=== PATIENT | male | born 1970 | race African-American/Black ===

== ENCOUNTER 2017-04-05 13:52 | Inpatient (IN) | payer BC ==
[~2017-04-05] VITALS: Ht 188 cm; Wt 113.4 kg
[~2017-04-05 13:52] MED LIST: ASPIRIN325 MG PO; GLUCOPHAGE1000 MG PO; HYDROCHLOROTHIA25 MG PO; LOPRESSOR25 MG PO; NORVASC10 MG PO; PRAVASTATIN SOD10 MG PO; PRINIVIL10 MG PO; VIAGRA100 MG PO
[2017-04-06] MEDS ORDERED: CLARITIN 10 MG10 MG PO (06:22)
[2017-04-06] MEDS ORDERED: FUROSEMIDE40 MG PO (06:22)
[2017-04-06] MEDS ORDERED: CATAPRES0.1 MG PO (06:25)
[2017-04-06] MEDS ORDERED: TENORMIN50 MG PO (06:26)
[2017-04-06] MEDS ORDERED: POTASSIUM CHLO20 MEQ PO (06:27)
[2017-04-06] MEDS ORDERED: LANTUS INSULIN10 ML SC (06:28)
[2017-04-06] MEDS ORDERED: GLUCOTROL ER2.5 MG PO (06:28)
[2017-04-06] MEDS ORDERED: VITAMIN C1000 MG PO (06:30)
[2017-04-06 11:01] VITALS: Ht 188 cm; Wt 113.4 kg
[2017-04-07 13:34] VITALS: BP 157/93
== END 2017-04-07 16:24 | disposition home or self-care (01) | DRG 389 ==
LOC: D.ER 13:52 → D.MS 19:42
PROVIDERS: ADMIT Surgery
PROC: 0D9670Z Drainage of Stomach with Drainage Device, Via Natural or Artificial Opening (ICD-10-PCS; principal; 2017-04-05)
DX: K56.60 Unspecified intestinal obstruction (principal); N17.9 Acute kidney failure, unspecified; G81.91 Hemiplegia, unspecified affecting right dominant side; E11.65 Type 2 diabetes mellitus with hyperglycemia; Z79.4 Long term (current) use of insulin; I10 Essential (primary) hypertension; E78.5 Hyperlipidemia, unspecified

== ENCOUNTER → 2017-06-07 11:05 | Outpatient (CLI) | payer MEDICAID ==
[2017-04-06 11:01] VITALS: BMI 32.1
[~2017-06-07 11:05] MED LIST changes: +CATAPRES0.1 MG PO; +CLARITIN 10 MG10 MG PO; +FUROSEMIDE40 MG PO; +GLUCOTROL ER2.5 MG PO; +LANTUS INSULIN10 ML SC; +POTASSIUM CHLO20 MEQ PO; +TENORMIN50 MG PO; +VITAMIN C1000 MG PO
== END | disposition home or self-care (01) ==
LOC: D.CT 11:00
DX: R91.1 Solitary pulmonary nodule (principal)

== ENCOUNTER 2019-04-19 21:05 | Inpatient (IN) | payer MEDICAID ==
[~2019-04-19] VITALS: Ht 188 cm; Wt 117.9 kg
[2019-04-19 22:19] LABS: BASOPHILS 0.1 % (0-2); EOSINOPHILS 0.6 % (0-7); HEMATOCRIT 39.9 % (42.0-54.0); HEMOGLOBIN 14.2 g/dL (13.5-17.5); IMMATURE GRANULOCYTES 0.1 % (0-5); LYMPHOCYTES 16.1 % (15-50); MCH 27.2 pg (26.0-34.0); MCHC 35.6 g/dL (31.0-37.0); MCV 76.4 fL (80.0-100.0); MONOCYTES 3.7 % (2-11); NEUTROPHILS 79.4 % (40-80); PLATELET COUNT 163 10x3/uL (130-400); RBC 5.22 10x6/uL (4.20-6.10); RDW 14.4 % (11.5-14.5); WBC 7.9 10x3/uL (4.8-10.8)
[2019-04-19 22:35] LABS: ALBUMIN 3.6 g/dL (3.4-5.0); ALKALINE PHOSPHATASE 75 U/L (46-116); ALT (SGPT) 23 U/L (10-68); AMYLASE - SERUM 36 U/L (25-115); BILIRUBIN - TOTAL 0.64 mg/dL (0.2-1.3); CALC OSMOLALITY 281 mosm/kg (275-300); CALCIUM 9.5 mg/dL (8.5-10.1); CARBON DIOXIDE 27.3 mmol/L (21.0-32.0); CHLORIDE - SERUM 98 mmol/L (98-107); CREATININE - SERUM 1.5 mg/dL (0.6-1.3); GLUCOSE 262 mg/dL (74-106); LIPASE 105 U/L (73-393); POTASSIUM - SERUM 4.1 mmol/L (3.5-5.1); PROTEIN - SERUM 8.4 g/dL (6.4-8.2); SODIUM 136 mmol/L (136-145); TROPONIN-I < 0.017 ng/mL (0.000-0.060); UREA NITROGEN 14 mg/dL (7-18); eGFR NON AFRICAN AMERICAN 53 mL/min (90-120)
--- NOTE | 2019-04-19 22:57 | NUR ---
PT TO CT AT THIS TIME.
--- NOTE | 2019-04-19 23:10 | NUR ---
PT RETURNED FROM RADIOLOGY.
[2019-04-19 23:49] VITALS: BP 176/100
--- NOTE | 2019-04-20 00:14 | NUR ---
ATTEMPTED TO INSERT NG X 2. PT HACKED GAGGED PULLED OUT NG TUBE STATING HE COULD NOT BREATH. TUBE COVERED WITH BLOODY MUCUS
--- NOTE | 2019-04-20 00:20 | NUR ---
spoke with dr diaz about ng tube. ng tube dc
[2019-04-20 00:26] LABS: COLOR YELLOW (YELLOW)
[2019-04-20 00:27] LABS: APPEARANCE CLEAR (CLEAR); BILIRUBIN NEGATIVE (NEGATIVE); GLUCOSE 1000 mg/dL (NEGATIVE); KETONE MODERATE mg/dL (NEGATIVE); NITRITE NEGATIVE (NEGATIVE); PROTEIN 3+ mg/dL (NEGATIVE); UROBILINOGEN NORMAL (NORMAL)
[2019-04-20 00:35] LABS: BACTERIA NONE SEEN /hpf (NEGATIVE); EPITHELIAL CELLS 0-5 /hpf (0-5); RED CELLS - URINE 0-5 /hpf (0-5); WHITE CELLS - URINE 0-5 /hpf (NEGATIVE)
[2019-04-20 01:34] VITALS: BP 168/99; BMI 33.4
--- NOTE | 2019-04-20 01:57 | NUR ---
RECIEVED REPORT FROM [facility], PT ARRIVED ON WHEEL CHAIR. VSS, AAOX4, NO S/S OF PAIN OR DISTRESS. MOTHER @ BEDSIDE. 22G PIV LH, 20 PIV RAC, PATENT. PT PLACED NPO. WILL OBTAINED TELE FOR PT. PT DENIES ANY NAUSEA AT THIS TIME. EMESIS BAG PLACED AT BEDSIDE. NS BOLUS INFUSING ON ARRIVAL, ALONGSIDE MERREM. ADMISSION ASSESSMENT COMP. PT DENIES ANY FURTHER NEEDS AT THIS TIME. WILL CTM.
[2019-04-20 04:11] VITALS: BP 173/100
--- NOTE | 2019-04-20 04:27 | NUR ---
ON ASSESSMENT PT'S BP 173/100. REASSESSED AFTER 10MINS SBP 182/101. CALLED AND NOTIFIED CHAVEZ PELAYO. HE ORDERED HYDRALAZINE 10MG IV Q4 PRN FOR SBP >180. WILL ADMINISTER AND REASSESS.
--- NOTE | 2019-04-20 06:28 | NUR ---
REASSESED BP NOW 152/91. FSBS 208 INSULIN ADMINITERED PER SLIDING SCALE.
[2019-04-20 07:50] LABS: BASOPHILS 0.3 % (0-2); EOSINOPHILS 1.2 % (0-7); HEMATOCRIT 39.6 % (42.0-54.0); HEMOGLOBIN 13.9 g/dL (13.5-17.5); IMMATURE GRANULOCYTES 0.1 % (0-5); LYMPHOCYTES 23.2 % (15-50); MCH 26.9 pg (26.0-34.0); MCHC 35.1 g/dL (31.0-37.0); MCV 76.7 fL (80.0-100.0); MONOCYTES 4.4 % (2-11); NEUTROPHILS 70.8 % (40-80); PLATELET COUNT 175 10x3/uL (130-400); RBC 5.16 10x6/uL (4.20-6.10); RDW 14.6 % (11.5-14.5); WBC 7.7 10x3/uL (4.8-10.8)
[2019-04-20 07:58] LABS: APTT 24.2 SECONDS (22.8-39.4); INR 1.06 (0.85-1.17); PROTIME 13.3 SECONDS (11.6-15.0)
[2019-04-20 08:07] LABS: CALCIUM 8.6 mg/dL (8.5-10.1); CARBON DIOXIDE 24.3 mmol/L (21.0-32.0); CREATININE - SERUM 1.2 mg/dL (0.6-1.3); MAGNESIUM - SERUM 1.7 mg/dL (1.8-2.4); PHOSPHOROUS 3.3 mg/dL (2.5-4.9); POTASSIUM - SERUM 4.3 mmol/L (3.5-5.1)
[2019-04-20 08:10] VITALS: BP 154/85
--- NOTE | 2019-04-20 11:30 | NUR ---
RECEIVED PT FROM [facility], ALERT AND ORIENTED. NO C/O PAIN. NO S/S OF ACUTE DISTRESS NOTED. IV TO LEFT HAND, NS INFUSING @ 100ML/HR. SITE PATENT WITHOUT REDNESS OR SWELLING. PT NPO. PT DENIES ANY NEEDS AT THIS TIME. CALL LIGHT IN REACH. WILL CONTINUE TO MONITOR.
[2019-04-20 12:25] VITALS: BMI 33.4
--- NOTE | 2019-04-20 14:24 | NUR ---
I have reviewed this patient and I concur with the Shift Assessment completed by the Licensed Practical Nurse today this shift.
--- NOTE | 2019-04-20 18:46 | NUR ---
ALERT AND ORIENTED, LEFT TO GO DOWNSTAIRS TO CHECK ON MOTHER ADMITTED TO MED 3. NO C/O PAIN. NO S/S OF ACUTE DISTRESS NOTED. CALL LIGHT IN REACH. DENIES ANY NEEDS.
--- NOTE | 2019-04-20 19:00 | NUR ---
BEDSIDE REPORT RECEIVED AND CARE OF PT ASSUMED. PT SITTING ON THE SIDE OF THE BED WATCHING TV. IV TO LEFT HAND PATENT WITH NS INFUSING AT 100 ML/HR. WILL MONITOR FOR NEEDS.
[2019-04-20 20:00] VITALS: BP 165/106
--- NOTE | 2019-04-20 20:00 | NUR ---
PT OUT OF ROOM...HIS MOTHER IS IN THE ER.
--- NOTE | 2019-04-20 20:35 | NUR ---
PT BACK IN ROOM...FLUSHED IV AND RE-STARTED IV FLUIDS. HS MEDICATIONS GIVEN. FSBS 122 THIS CHECK REQUIRING NO COVERAGE PER SLIDING SCALE. GAVE HYDRALAZINE 10 MG IVP PER PRN ORDER, FOR ELEVATED BP OF 165/106. WILL CONTINUE TO MONITOR FOR NEEDS.
[2019-04-21] VITALS: BP 111/75
[2019-04-21 06:26] VITALS: BP 168/92
[2019-04-21 06:29] LABS: BASOPHILS 0.3 % (0-2); EOSINOPHILS 4.6 % (0-7); HEMATOCRIT 35.3 % (42.0-54.0); HEMOGLOBIN 12.3 g/dL (13.5-17.5); IMMATURE GRANULOCYTES 0.2 % (0-5); LYMPHOCYTES 36.9 % (15-50); MCH 26.6 pg (26.0-34.0); MCHC 34.8 g/dL (31.0-37.0); MCV 76.4 fL (80.0-100.0); MEAN PLATELET VOLUME 11.5 fL (7.4-10.4); MONOCYTES 6.2 % (2-11); NEUTROPHILS 51.8 % (40-80); PLATELET COUNT 159 10x3/uL (130-400); RBC 4.62 10x6/uL (4.20-6.10); RDW 14.7 % (11.5-14.5); WBC 5.8 10x3/uL (4.8-10.8)
[2019-04-21 06:32] LABS: ALBUMIN 2.9 g/dL (3.4-5.0); ANION GAP 13.9 mmol/L (8-16); BILIRUBIN - TOTAL 0.64 mg/dL (0.2-1.3); CALCIUM 8.3 mg/dL (8.5-10.1); CARBON DIOXIDE 25.8 mmol/L (21.0-32.0); CREATININE - SERUM 1.5 mg/dL (0.6-1.3); MAGNESIUM - SERUM 1.7 mg/dL (1.8-2.4); PHOSPHOROUS 2.8 mg/dL (2.5-4.9); POTASSIUM - SERUM 3.7 mmol/L (3.5-5.1)
[2019-04-21 06:33] LABS: PROTEIN - SERUM 6.2 g/dL (6.4-8.2)
--- NOTE | 2019-04-21 09:00 | NUR ---
ALERT AND ORIENTED X4. ABDOMEN SOFT WITH BS NOTED X4 WITHOUT TENDERNESS. IVF INFUSING AT PRESCRIBED RATE WITH NO S/S OF INFECTION/INFILTRATION. UP ADLIB AND NO COMPLAINTS NOTED AT THIS TIME. ENCOURAGED TO USE CALL LIGHT FOR ASSIST.
[2019-04-21 12:52] VITALS: Ht 188 cm; Wt 117.9 kg
[2019-04-21 14:09] VITALS: BP 170/95
[2019-04-21] MEDS ORDERED: LEVOFLOXACIN500 MG PO (14:51)
--- NOTE | 2019-04-21 15:37 | MORECARE ---
CASE MANAGEMENT DISCHARGE SUMMARY PATIENT: SHAHAB WOLFF UNIT: [id number] ADM DATE: 04/20/19 AGE: 48 : 70 SEX: M ROOM/BED: D.2227 AUTHOR: FINA RODRIGUEZ PHYSICIAN: REFERRING PHYSICIAN: TANJA TRAN MD DATE OF SERVICE: 04/21/19 Discharge Plan Patient Name: SHAHAB WOLFF Facility: [facility]:[place] : 1970 Planned Disposition: Home Anticipated Discharge Date: Discharge Date: Expected LOS: Initial Reviewer: [email or web address] Initial Review Date: 04/21/2019 Generated: 04/21/19 4:37 pm Comments DCP- Discharge Planning Updated by [email or web address]: Carmen Ramirez on 04/21/19 2:[address] Patient Name: SHAHAB WOLFF Admission Status: ER Accout number: [id number] Admission Date: 04-20-2019 : 1970 Admission Diagnosis: Attending: TANJA TRAN Current LOS: 1 Anticipated DC Date: Planned Disposition: Home Primary Insurance: MEDICAID [place] PENDING Discharge Planning Comments: Received orders for discharge. He is not in his room. He has gone to visit with his mother in the hospital. No needs identified after reviewing his chart. CM will assist as needed prior to discharge. Local Superintendent: Carmen Ramirez Patient Name: SHAHAB WOLFF Page [phone] at 1537 All edits/amendments must be made on the electronic document DICTATION DATE: 04/21/191536 SCRAPPER: ZULLY 04/21/191536 RPT#: [id number] DC DATE: STATUS: ADM IN [facility] [address] [place] [address] END OF REPORT
--- NOTE | 2019-04-21 16:30 | NUR ---
IV DISCONTINUED AND VERBALIZED UNDERSTANDING OF DISCHARGE INSTRUCTIONS. STABLE AT TIME OF DEPARTURE. AMBULATING ADLIB AND DENIES ANY PAIN OR DISCOMFORT.
--- NOTE | 2019-04-25 07:17 | MORECARE ---
CASE MANAGEMENT DISCHARGE SUMMARY PATIENT: SHAHAB WOLFF UNIT: [id number] ADM DATE: 04/20/19 AGE: 48 : 70 SEX: M ROOM/BED: D.2227 AUTHOR: FINA RODRIGUEZ PHYSICIAN: REFERRING PHYSICIAN: TANJA TRAN MD DATE OF SERVICE: 04/25/19 Discharge Plan Patient Name: SHAHAB WOLFF Facility: [facility]:[place] : 1970 Planned Disposition: Home Anticipated Discharge Date: Discharge Date: 04/21/2019 Expected LOS: 0 Initial Reviewer: [email or web address] Initial Review Date: 04/21/2019 Generated: 04/25/19 8:17 am Comments DCP- Discharge Planning Updated by [email or web address]: Carmen Ramirez on 04/21/19 2:[address] Patient Name: SHAHAB WOLFF Admission Status: ER Accout number: [id number] Admission Date: 04-20-2019 : 1970 Admission Diagnosis: Attending: TANJA TRAN Current LOS: 1 Anticipated DC Date: Planned Disposition: Home Primary Insurance: MEDICAID [place] PEND[place] Discharge Planning Comments: Received orders for discharge. He is not in his room. He has gone to visit with his mother in the hospital. No needs identified after reviewing his chart. CM will assist as needed prior to discharge. Winery Cellar Hand: Carmen Ramirez Last DP export: 04/21/19 2:37 p Patient Name: SHAHAB WOLFF Page [id number] at 0717 All edits/amendments must be made on the electronic document DICTATION DATE: 04/25/19716 LEATHER GRAINER: DM 04/25/19716 RPT#: [id number] DC DATE:04/21/19 STATUS: DIS IN [facility] [id number] [place] [address] END OF REPORT
== END 2019-04-21 16:30 | disposition home or self-care (01) | DRG 389 ==
LOC: D.ER 21:05 → D.MS 04-20 00:13 → D.M3 04-20 00:13 → D.MS 04-20 11:35
PROVIDERS: Family Medicine; ADMIT Family Medicine; ATTEND Family Medicine
DX: K56.609 Unspecified intestinal obstruction, unspecified as to partial versus complete obstruction (principal); I69.351 Hemiplegia and hemiparesis following cerebral infarction affecting right dominant side; I10 Essential (primary) hypertension; E11.65 Type 2 diabetes mellitus with hyperglycemia; E78.5 Hyperlipidemia, unspecified; M19.90 Unspecified osteoarthritis, unspecified site